=== PATIENT | female | born 2000 | race Caucasian/White ===

== ENCOUNTER 2024-12-11 07:34 | Emergency (ER) | payer MEDICAID ==
[~2024-12-11] VITALS: Ht 165.1 cm; Wt 62.0 kg
[2024-12-11 07:42] VITALS: O2SAT 100
[2024-12-11] MEDS ORDERED: B50 MT (08:15)
[2024-12-11] MEDS ORDERED: P20 PO (08:15)
[2024-12-11] MEDS ORDERED: DIPHENHYDRAMINE 50MG CAPSULE PO ONE (08:15)
[2024-12-11] MEDS ORDERED: FAMO40TA70 MT (08:15)
[2024-12-11] MEDS: PREDNISONE 20MG TABLET PO ONE (08:26)
[2024-12-11] MEDS: FAMOTIDINE 20MG TABLET PO STA (08:26)
[2024-12-11] MEDS: DIPHENHYDRAMINE 25MG CAPSULE PO NR (08:27)
[2024-12-11 08:35] VITALS: BP 118/71; PULSE 83; RESP 16; TEMP 36.8; O2SAT 100
== END 2024-12-11 08:46 | disposition home or self-care (01) ==
LOC: ER 07:34
DX: L50.9 Urticaria, unspecified (principal); Z79.52 Long term (current) use of systemic steroids
CPT/HCPCS: 99284; 81025; Q0163; J7512